=== PATIENT | male | born 1965 | race Caucasian/White ===

== ENCOUNTER 2016-09-28 15:07 | Inpatient (IN) | payer SELFPAY ==
[~2016-09-28] VITALS: Ht 180.3 cm; Wt 67.0 kg
[2016-09-28] VITALS (10 sets, daily range): BP systolic 105–150; BP diastolic 56–81; PULSE 64–235; RESP 15–20; TEMP 98.3–98.6; O2SAT 98–100
[~2016-09-28 15:07] MED LIST: Z.0.NO CURRENT MEDS
[2016-09-28] MEDS ORDERED: ETOMIDATE 20 MG/10 ML VIAL IV PUSH ONE (15:15)
[2016-09-28] MEDS ORDERED: SODIUM CHLORIDE 0.9% FLUSH 10 ML FLUSH IVF PRN (15:30)
[2016-09-28] MEDS ORDERED: METOPROLOL TARTRATE 50 MG TAB PO ONE (15:30)
[2016-09-28 15:43] LABS: AUTOMATED NEUTROPHIL # 11.7 TH/MM3 (1.8-7.7); BASOPHIL # 0.1 TH/MM3 (0-0.2); BASOPHIL % 0.7 % (0.0-2.0); EOSINOPHIL # 0.1 TH/MM3 (0-0.4); EOSINOPHIL % 0.7 % (0.0-4.0); HEMATOCRIT 45.3 % (39.0-51.0); HEMO FLAGS DIFF FINAL; LYMPH % 12.7 % (9.0-44.0); LYMPHOCYTE # 1.9 TH/MM3 (1.0-4.8); MEAN CELL VOLUME 88.9 FL (80.0-100.0); MEAN CORPUSCULAR HEMOGLOBIN 29.4 PG (27.0-34.0); MEAN CORPUSCULAR HGB CONC 33.1 % (32.0-36.0); MONO % 6.2 % (0.0-8.0); NEUT % 79.7 % (16.0-70.0); PLATELET COUNT 236 TH/MM3 (150-450); RED CELL DISTRIBUTION WIDTH 13.1 % (11.6-17.2); WHITE BLOOD COUNT 14.6 TH/MM3 (4.0-11.0)
--- NOTE | 2016-09-28 15:46 | RADRPT ---
EXAM DATE/TIME: 09/28/2016 15:36 [place] COMPARISON: No previous studies available for comparison. INDICATIONS : Chest pain. MEDICAL HISTORY : None. SURGICAL HISTORY : None. ENCOUNTER: Initial ACUITY: 1 day PAIN SCORE: 10/10 LOCATION: Bilateral chest FINDINGS: A single view of the chest demonstrates the lungs to be symmetrically aerated without evidence of mas s, infiltrate or effusion. The cardiomediastinal contours are unremarkable. Osseous structures are intact. CONCLUSION: No evidence of acute cardiopulmonary disease. Moise Barry MD on September 28, 2016 at 15:44 Board Certified Radiologist. This report was verified electronically.
[2016-09-28 15:51] LABS: AMPHETAMINE, URINE NEG (NEG); BARBITURATES, URINE NEG (NEG); COCAINE, URINE NEG (NEG)
[2016-09-28 16:00] LABS: APTT (PATIENT) 27.1 SEC (24.3-30.1); PROTHROMBIN TIME - PATIENT 11.3 SEC (9.8-11.6)
[2016-09-28 16:08] LABS: ANION GAP 11 MEQ/L (5-15); BICARBONATE 20.6 MEQ/L (21.0-32.0); BLOOD UREA NITROGEN 20 MG/DL (7-18); CHLORIDE 111 MEQ/L (98-107); GLOMERULAR FILTRATION RATE 86 ML/MIN (>89); MAGNESIUM 2.2 MG/DL (1.5-2.5); POTASSIUM 3.9 MEQ/L (3.5-5.1); SODIUM (NA) 143 MEQ/L (136-145)
[2016-09-28 16:12] LABS: CREATINE KINASE 265 U/L (39-308)
[2016-09-28 16:24] LABS: CKMB 4.3 NG/ML (0.5-3.6)
[2016-09-28] MEDS ORDERED: SODIUM CHLOR 0.9% 1000 ML INJ 1,000 ML IV ONE (16:30)
--- NOTE | 2016-09-28 16:32 | PD ---
HPI Chief Complaint: Cardiac Complaint Time Seen by Provider: 15:09 Travel History International Travel<30 days: No Contact w/Intl Traveler<30days: No Traveled to known affect area: No History of Present Illness HPI 51-year-old male came to the emergency room brought by EMS for tachycardia. Patient says that he was not feeling well for past 1 hour and was getting palpitations. When EMS arrived he was in SVT. They gave him adenosine 6 mg followed by another 6 mg and then 12 mg and each time he temporally converted for a few seconds and then went back to the SVT. Upon arrival he was at a heart rate of close to 250 bpm. He is awake and answering questions. Denies of any chest pain. He said he has never had this before. No history of cocaine as per the patient. He otherwise claims to be healthy. [facility] Past Medical History Narrative Medical List of his past medical, surgical, social and family history was reviewed from the nursing note. Medical History: Denies Significant Hx Diminished Hearing: No Past Surgical History Surgical History: No Previous Surgery Social History Alcohol Use: Yes (BEER EVERY 2 DAYS) Tobacco Use: No (QUIT) Substance Use: Yes (MARIJUANA) Allergies-Medications (Allergen,Severity, Reaction): Coded Allergies: No Known Allergies (Verified , 09/28/16) Comments No known drug allergies. Reported Meds & Prescriptions Reported Meds & Active Scripts Active No Active Prescriptions or Reported Medications Narrative Medication List of his home medications reviewed from the nursing note. Review of Systems Except as stated in HPI: all other systems reviewed are Neg Physical Exam Narrative GENERAL: Awake, alert, moderate distress SKIN: Focused skin assessment warm/dry. Pale HEAD: Atraumatic. Normocephalic. EYES: Pupils equal and round. No scleral icterus. No injection or drainage. ENT: No nasal bleeding or discharge. Mucous membranes pink and moist. NECK: Trachea midline. No JVD. CARDIOVASCULAR: Regular rate and rhythm. Tachycardia. No murmur appreciated. RESPIRATORY: No accessory muscle use. Clear to auscultation. Breath sounds equal bilaterally. GASTROINTESTINAL: Abdomen soft, non-tender, nondistended. Hepatic and splenic margins not palpable. MUSCULOSKELETAL: No obvious deformities. No clubbing. No cyanosis. No edema. NEUROLOGICAL: Awake and alert. No obvious cranial nerve deficits. Motor grossly within normal limits. Normal speech. PSYCHIATRIC: Appropriate mood and affect; insight and judgment normal. Data Data Last Documented VS Vital Signs Date Time Temp Pulse Resp B/P Pulse Ox O2 Delivery O2 Flow Rate FiO2 09/28/16 16:30 86 19 105/79 100 Nasal Cannula 2 09/28/16 15:15 98.3 Orders Etomidate Inj (Amidate Inj) (09/28/16 15:15) Basic Metabolic Panel (Bmp) (09/28/16 15:19) Ckmb (Isoenzyme) Profile (09/28/16 15:19) Complete Blood Count With Diff (09/28/16 15:19) Magnesium (Mg) (09/28/16 15:19) Prothrombin Time / Inr (Pt) (09/28/16 15:19) Act Partial Throm Time (Ptt) (09/28/16 15:19) Troponin I (09/28/16 15:19) Chest, Single Ap (09/28/16 15:19) Ecg Monitoring (09/28/16 15:19) Bilateral Bp Monitoring (09/28/16 15:19) Iv Access Insert/Monitor (09/28/16 15:19) Oximetry (09/28/16 15:19) Oxygen Administration (09/28/16 15:19) Sodium Chloride 0.9% Flush (Ns Flush) (09/28/16 15:30) Metoprolol Tartrate (Lopressor) (09/28/16 15:30) Drug Screen, Random Urine (09/28/16 15:20) CKMB (09/28/16 15:25) CKMB% (09/28/16 15:25) Sodium Chlor 0.9% 1000 Ml Inj (Ns 1000 M (09/28/16 16:30) Admit Order (Ed Use Only) (09/28/16 16:59) Labs Laboratory Tests Test 09/28/16 15:25 White Blood Count 14.6 TH/MM3 Red Blood Count 5.10 MIL/MM3 Hemoglobin 15.0 GM/DL Hematocrit 45.3 % Mean Corpuscular Volume 88.9 FL Mean Corpuscular Hemoglobin 29.4 PG Mean Corpuscular Hemoglobin 33.1 % Concent Red Cell Distribution Width 13.1 % Platelet Count 236 TH/MM3 Mean Platelet Volume 9.9 FL Neutrophils (%) (Auto) 79.7 % Lymphocytes (%) (Auto) 12.7 % Monocytes (%) (Auto) 6.2 % Eosinophils (%) (Auto) 0.7 % Basophils (%) (Auto) 0.7 % Neutrophils # (Auto) 11.7 TH/MM3 Lymphocytes # (Auto) 1.9 TH/MM3 Monocytes # (Auto) 0.9 TH/MM3 Eosinophils # (Auto) 0.1 TH/MM3 Basophils # (Auto) 0.1 TH/MM3 CBC Comment DIFF FINAL Differential Comment Prothrombin Time 11.3 SEC Prothromb Time International 1.0 RATIO Ratio Activated Partial 27.1 SEC Thromboplast Time Sodium Level 143 MEQ/L Potassium Level 3.9 MEQ/L Chloride Level 111 MEQ/L Carbon Dioxide Level 20.6 MEQ/L Anion Gap 11 MEQ/L Blood Urea Nitrogen 20 MG/DL Creatinine 0.93 MG/DL Estimat Glomerular Filtration 86 ML/MIN Rate Random Glucose 143 MG/DL Calcium Level 8.6 MG/DL Magnesium Level 2.2 MG/DL Total Creatine Kinase 265 U/L Creatine Kinase MB 4.3 NG/ML Troponin I 0.09 NG/ML Urine Opiates Screen NEG Urine Barbiturates Screen NEG Urine Amphetamines Screen NEG Urine Benzodiazepines Screen NEG Urine Cocaine Screen NEG Urine Cannabinoids Screen POS MDM Medical Decision Making Medical Screen Exam Complete: Yes Emergency Medical Condition: Yes Medical Record Reviewed: Yes Interpretation(s) Twelve-lead EKG was reviewed by me. White complex tachycardia. Heart rate of 243 bpm. Differential Diagnosis SVT, WPW Narrative Course 4:28 PM given the fact that he had not converted with the recommended dose of adenosine I decided to cardiovert him. Please refer to my procedure note. Patient was cardioverted by me. Rhythm immediately converted to normal sinus with tachycardia. Heart rate was 102 bpm. Patient tolerated the procedure well. Blood test results came back and his troponin is elevated. I've decided to admit him. Patient is positive for THC. He is getting a liter of IV fluid bolus. I also gave him 50 mg of metoprolol. Critical Care Narrative Aggregate critical care time was 45 minutes. Time to perform other separately billable procedures was not included in the critical care time. My time did not include minutes spent treating any other patients simultaneously or on activities that did not directly contribute to the patient's treatment. The services I provided to this patient were to treat and/or prevent clinically significant deterioration that could result in: SVT, elevated troponin, electrocardioversion I provided critical care services requiring my management, as noted below: Chart data review, documentation time, medication orders and management, vital sign assessments/reviewing monitor data, ordering and reviewing lab tests, ordering and interpreting/reviewing x-rays and diagnostic studies, care of the patient and discussion of the patient with the admitting physicians. Procedures Procedure Narrative After the risks and benefits were discussed the following procedure was performed: MODERATE SEDATION: The patient was placed on a manager monitoring and pulse oximetry. An ambu bag and suction was immediately available at bedside. The patient was monitored by the nurse. Oxygen saturation , heart rate and blood pressure were monitored. Procedural sedation was acheived using IV 10 mg of etomidate. The patient was observed until awake and alert. Procedural Sedation time in attendance was 20 minutes. After the sedation was done patient was already on cardioversion pads was synchronized to 50 J and shock was delivered. Patient immediately cardioverted to normal sinus rhythm. Patient tolerated the procedure well. Patient remained hemodynamically stable. EKG Prior to Arrival: Yes Diagnosis Primary Impression: Sustained SVT Additional Impression: Elevated troponin I level Admitting Information Admitting Physician Requests: Admit Scripts No Active Prescriptions or Reported Meds Tamanna Lacy MD Sep 28, 2016 16:32 Tamanna Lacy MD Sep 28, 2016 16:32
[2016-09-28] MEDS ORDERED: MAGNESIUM HYDROXIDE SUSP 30 ML CUP PO PRN (17:30)
[2016-09-28] MEDS ORDERED: ONDANSETRON HCL 4 MG/2 ML VIAL IVP PRN (17:30)
[2016-09-28] MEDS ORDERED: BISACODYL 10 MG SUPP RECTAL PRN (17:30)
[2016-09-28] MEDS ORDERED: ACETAMINOPHEN 325 MG TAB PO PRN (17:30)
[2016-09-28] MEDS ORDERED: SENNOSIDES 8.6 MG TAB PO PRN (17:30)
[2016-09-28] MEDS ORDERED: SODIUM CHLORIDE 0.9% FLUSH 10 ML FLUSH IV FLUSH PRN (17:30)
[2016-09-28] MEDS ORDERED: LACTULOSE SYRUP 20 GM/30 ML CUP PO PRN (17:30)
--- NOTE | 2016-09-28 18:29 | HHI.HP ---
[facility] No Primary Care Physician Admission Diagnosis SVT, elevated troponin Diagnoses: Chief Complaint: Heart racing Dizziness Sweating Travel History International Travel<30 Days: No Contact w/Intl Traveler <30 Da: No Traveled to Known Affected Are: No History of Present Illness Written by Rafaela Murillo acting as scribe for Dr. Rainey on 09/28/16 at 18 :15. This is a 51-year-old Romanian male with no significant past medical history who was brought into the ED by EMS for tachycardia. History is obtained from the patient himself as well as review of the medical record. Patient states that he had been working on a truck out in the heat earlier today. He had not eaten or drank anything all day. About an hour prior to his arrival into the ED, he developed some dizziness, sweating and palpitations. He felt as if his heart was racing. He denies any associated chest pain. When EMS arrived patient was in SVT. EMS administered several rounds of adenosine and each time patient would temporally convert to NSR for a few seconds before going back in to SVT. Upon arrival to the ED patient heart rate of near 250. Patient was cardioverted in the ED and the rhythm and really returned to normal sinus with tachycardia. He was given IV fluid and started on metoprolol 50 mg. Of note, patient is requesting to be discharged by Friday as he has a flight to [place] to see his son's graduation from high school. Review of Systems Except as stated in HPI: all other systems reviewed are Neg Past Family Social History Past Medical History Patient denies any significant past history Past Surgical History Patient denies any previous surgical procedure Reported Medications No Active Prescriptions or Reported Medications Allergies: Coded Allergies: No Known Allergies (Verified , 09/28/16) Active Ordered Medications Current Medications Medications (Trade) Dose Ordered Sig/Mary Route Start Time Stop Time Status Last Admin (NS Flush) 2 ml UNSCH PRN IVF 09/28/16 15:30 (NS Flush) 2 ml UNSCH PRN IV FLUSH 09/28/16 17:30 (NS Flush) 2 ml BID IV FLUSH 09/28/16 21:00 (Tylenol) 650 mg Q4H PRN PO 09/28/16 17:30 (Zofran Inj) 4 mg Q6H PRN IVP 09/28/16 17:30 (Heparin Inj) 5,000 units Q8H SQ 09/28/16 17:30 (Lauryn-Colace) 1 tab BID PO 09/28/16 21:00 (Milk Of Magnesia Liq) 30 ml Q12H PRN PO 09/28/16 17:30 (Senokot) 17.2 mg Q12H PRN PO 09/28/16 17:30 (Dulcolax Supp) 10 mg DAILY PRN RECTAL 09/28/16 17:30 (Lactulose Liq) 30 ml DAILY PRN PO 09/28/16 17:30 Family History Patient denies any family medical history of heart disease Social History Patient reports a history of tobacco use but quit. He admits to alcohol consumption of 2-3 beers a day every 3-4 days. He reports marijuana use. He denies any cocaine use in the past. Physical Exam Vital Signs Vital Signs Date Time Temp Pulse Resp B/P Pulse Ox O2 Delivery O2 Flow Rate FiO2 09/28/16 18:09 99 4.00 09/28/16 16:30 86 19 105/79 100 Nasal Cannula 2 09/28/16 16:00 94 20 106/56 98 Nasal Cannula 3 09/28/16 15:33 96 19 138/64 100 Nasal Cannula 4 09/28/16 15:30 99 19 100 Nasal Cannula 4 09/28/16 15:30 94 15 138/64 98 Nasal Cannula 3 09/28/16 15:15 98.3 98 20 150/77 100 Nasal Cannula 4 09/28/16 15:12 98 Nasal Cannula 4 09/28/16 15:12 98 Nasal Cannula 4 09/28/16 15:12 235 20 126/81 98 Physical Exam GENERAL: This is a well-nourished, well-developed patient, in no apparent distress. Awake and alert. Pleasant and cooperative. SKIN: No rashes, ecchymoses or lesions. Cool and dry. HEAD: Atraumatic. Normocephalic. No temporal or scalp tenderness. EYES: Pupils equal round and reactive. Extraocular motions intact. No scleral icterus. No injection or drainage. ENT: Nose without bleeding, purulent drainage or septal hematoma. Throat without erythema, tonsillar hypertrophy or exudate. Uvula midline. Airway patent. NECK: Trachea midline. Supple, nontender, no meningeal signs. CARDIOVASCULAR: Regular rate and rhythm without murmurs, gallops, or rubs. RESPIRATORY: Clear to auscultation. Breath sounds equal bilaterally. No wheezes , rales, or rhonchi. GASTROINTESTINAL: Abdomen soft, non-tender, nondistended. No hepato-splenomegaly , or palpable masses. No guarding. MUSCULOSKELETAL: Extremities without clubbing, cyanosis, or edema. No joint tenderness, effusion, or edema noted. No calf tenderness. NEUROLOGICAL: Awake and alert. Able to move all extremities. No focal neurologic findings appreciated. Normal speech. Laboratory Laboratory Tests Test 09/28/16 15:25 White Blood Count 14.6 Red Blood Count 5.10 Hemoglobin 15.0 Hematocrit 45.3 Mean Corpuscular Volume 88.9 Mean Corpuscular Hemoglobin 29.4 Mean Corpuscular Hemoglobin 33.1 Concent Red Cell Distribution Width 13.1 Platelet Count 236 Mean Platelet Volume 9.9 Neutrophils (%) (Auto) 79.7 Lymphocytes (%) (Auto) 12.7 Monocytes (%) (Auto) 6.2 Eosinophils (%) (Auto) 0.7 Basophils (%) (Auto) 0.7 Neutrophils # (Auto) 11.7 Lymphocytes # (Auto) 1.9 Monocytes # (Auto) 0.9 Eosinophils # (Auto) 0.1 Basophils # (Auto) 0.1 CBC Comment DIFF FINAL Differential Comment Prothrombin Time 11.3 Prothromb Time International 1.0 Ratio Activated Partial 27.1 Thromboplast Time Sodium Level 143 Potassium Level 3.9 Chloride Level 111 Carbon Dioxide Level 20.6 Anion Gap 11 Blood Urea Nitrogen 20 Creatinine 0.93 Estimat Glomerular Filtration 86 Rate Random Glucose 143 Calcium Level 8.6 Magnesium Level 2.2 Total Creatine Kinase 265 Creatine Kinase MB 4.3 Troponin I 0.09 Urine Opiates Screen NEG Urine Barbiturates Screen NEG Urine Amphetamines Screen NEG Urine Benzodiazepines Screen NEG Urine Cocaine Screen NEG Urine Cannabinoids Screen POS Result Diagram: 09/28/16 1525 09/28/16 1525 Imaging Last Impressions Chest X-Ray 09/28/16 1519 Signed Impressions: Service Date/Time: Wednesday, September 28, 2016 15:36 - CONCLUSION: No evidence of acute cardiopulmonary disease. Moise Barry MD Assessment and Plan Assessment and Plan 51-year-old Romanian male with no significant past medical history who was brought into the ED by EMS in SVT with a heart rate of 250. Despite being given the appropriate amount of adenosine, patient failed to stay in normal sinus rhythm. ED physician made the decision to cardiovert the patient and he was successful cardioverted to normal sinus rhythm with tachycardia. SVT Elevated troponin Patient currently in normal sinus rhythm with a heart rate of 90 Elevated troponin likely due to SVT Urine drug screen positive for marijuana but no evidence of cocaine use Consult cardiology Cardiac telemetry Cycle cardiac enzymes and EKGs Obtain echocardiogram Laboratory states to include thyroid studies, lipid profile and hemoglobin A1c NPO after midnight Leukocytosis Suspect reactive Patient is afebrile and normotensive. No suspicion of infection at this time. A.m. labs to monitor trend DVT prophylaxis Heparin subcutaneous This note was transcribed by chyna Murillo. I, Dr. Roberto Jones personally performed the history, physical exam, and medical decision making; and confirmed the accuracy of the information in the transcribed note. Authenticated by Dr. Roberto Jones on 09/28/16 at 18:33 Physician Certification 2 Midnight Certification Type: Admission for Inpatient Services Order for Inpatient Services The services are ordered in accordance with Medicare regulations or non- Medicare payer requirements, as applicable. In the case of services not specified as inpatient-only, they are appropriately provided as inpatient services in accordance with the 2-midnight benchmark. Estimated LOS (days): 2 days is the estimated time the patient will need to remain in the hospital, assuming treatment plan goals are met and no additional complications. Post-Hospital Plan: Not yet determined Rafaela Murillo Sep 28, 2016 18:29 Roberto Becerra MD Sep 28, 2016 18:34
[2016-09-28] MEDS: HEPARIN SODIUM - SQ 10,000 UNITS/ML VIAL SQ SCH (18:56)
[2016-09-28] MEDS: SODIUM CHLORIDE 0.9% FLUSH 10 ML FLUSH IV FLUSH SCH (19:46)
[2016-09-28] MEDS: DOCUSATE SODIUM 50 MG/SENNA 8.6 MG TAB PO SCH (19:46)
[2016-09-29] VITALS (7 sets, daily range): BP systolic 114–142; BP diastolic 62–73; PULSE 60–68; RESP 16–19; TEMP 97.9–98.6; O2SAT 96–100
[2016-09-29] MEDS: HEPARIN SODIUM - SQ 10,000 UNITS/ML VIAL SQ SCH ×3 (02:59→17:30)
[2016-09-29 03:24] LABS: AUTOMATED NEUTROPHIL # 6.5 TH/MM3 (1.8-7.7); BASOPHIL # 0.1 TH/MM3 (0-0.2); BASOPHIL % 1.1 % (0.0-2.0); EOSINOPHIL # 0.3 TH/MM3 (0-0.4); EOSINOPHIL % 2.8 % (0.0-4.0); HEMATOCRIT 40.5 % (39.0-51.0); HEMO FLAGS DIFF FINAL; LYMPH % 34.2 % (9.0-44.0); MEAN CELL VOLUME 87.3 FL (80.0-100.0); MEAN CORPUSCULAR HGB CONC 34.4 % (32.0-36.0); NEUT % 54.9 % (16.0-70.0); PLATELET COUNT 218 TH/MM3 (150-450); RED BLOOD COUNT 4.64 MIL/MM3 (4.50-5.90); RED CELL DISTRIBUTION WIDTH 12.9 % (11.6-17.2); WHITE BLOOD COUNT 11.7 TH/MM3 (4.0-11.0)
[2016-09-29 07:44] LABS: ANION GAP 11 MEQ/L (5-15); AST (GOT) 20 U/L (15-37); BLOOD UREA NITROGEN 15 MG/DL (7-18); CHLORIDE 109 MEQ/L (98-107); GLOMERULAR FILTRATION RATE 119 ML/MIN (>89); POTASSIUM 3.8 MEQ/L (3.5-5.1); SODIUM (NA) 141 MEQ/L (136-145)
[2016-09-29 07:53] LABS: ALKALINE PHOSPHATASE 60 U/L (45-117); ALT (GPT) 25 U/L (12-78); CREATINE KINASE 237 U/L (39-308); FREE T3 3.86 PG/ML (2.18-3.98); FREE T4 1.01 NG/DL (0.76-1.46); LDL CHOLESTEROL 75 MG/DL (0-99); TOTAL BILIRUBIN ADULT 0.9 MG/DL (0.2-1.0)
--- NOTE | 2016-09-29 08:55 | HHI.HP ---
HPI Primary Care Physician No Primary Care Physician Chief Complaint Arrhythmia History of Present Illness The patient has no cardiac history. He is extremely active. 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 He developed a rapid heart rate with fatigue and lightheadedness. This was persistent. He had no chest discomfort or other cardiopulmonary symptoms. He eventually sought attention in the emergency room where he was diagnosed with SVT which apparently converted with intravenous adenosine. Total duration of the episode was one and one half hours. EKG subsequent conversion showed sinus rhythm and was normal. On review of the emergency room strips it is clear that this is not a typical SVT but rather atrial flutter with one-to-one AV conduction at a rate of approximate 250 bpm. Review of Systems HEENT: COMPLAINS OF: Lightheadedness Cardiovascular: COMPLAINS OF: Tachycardia Musculoskeletal: COMPLAINS OF: Joint pain Past Family Social History Allergies: Coded Allergies: No Known Allergies (Verified , 09/28/16) Past Medical History Denies all except for knee pain. No history of hypertension, hyperlipidemia, thyroid disease or diabetes. Past Surgical History None Reported Medications Takes tramadol as needed for knee pain Reported Meds & Active Scripts Active No Active Prescriptions or Reported Medications Active Ordered Medications Current Medications Medications (Trade) Dose Ordered Sig/Mary Route Start Time Stop Time Status Last Admin (NS Flush) 2 ml UNSCH PRN IVF 09/28/16 15:30 (NS Flush) 2 ml UNSCH PRN IV FLUSH 09/28/16 17:30 (NS Flush) 2 ml BID IV FLUSH 09/28/16 21:00 09/28/16 19:46 (Tylenol) 650 mg Q4H PRN PO 09/28/16 17:30 (Zofran Inj) 4 mg Q6H PRN IVP 09/28/16 17:30 (Heparin Inj) 5,000 units Q8H SQ 09/28/16 17:30 09/29/16 02:59 (Lauryn-Colace) 1 tab BID PO 09/28/16 21:00 (Milk Of Magnesia Liq) 30 ml Q12H PRN PO 09/28/16 17:30 (Senokot) 17.2 mg Q12H PRN PO 09/28/16 17:30 (Dulcolax Supp) 10 mg DAILY PRN RECTAL 09/28/16 17:30 (Lactulose Liq) 30 ml DAILY PRN PO 09/28/16 17:30 Family History Unremarkable for premature coronary disease Social History The patient is single. He does not smoke cigarettes but does use marijuana. He does not use any other drugs. He drinks a few beers per day. Physical Exam Vital Signs Vital Signs Date Time Temp Pulse Resp B/P Pulse Ox O2 Delivery O2 Flow Rate FiO2 09/29/16 08:00 66 09/29/16 08:00 98.6 60 18 131/73 100 09/29/16 08:00 Room Air 09/29/16 04:00 98.4 68 18 121/73 98 09/29/16 00:00 98.4 66 16 114/65 99 09/28/16 20:00 Room Air 09/28/16 20:00 98.6 71 18 126/78 98 09/28/16 20:00 73 09/28/16 18:30 64 18 110/62 99 Nasal Cannula 3 09/28/16 18:09 99 4.00 09/28/16 17:30 64 19 119/75 100 Nasal Cannula 3 09/28/16 16:30 86 19 105/79 100 Nasal Cannula 2 09/28/16 16:00 94 20 106/56 98 Nasal Cannula 3 09/28/16 15:33 96 19 138/64 100 Nasal Cannula 4 09/28/16 15:30 99 19 100 Nasal Cannula 4 09/28/16 15:30 94 15 138/64 98 Nasal Cannula 3 09/28/16 15:15 98.3 98 20 150/77 100 Nasal Cannula 4 09/28/16 15:12 98 Nasal Cannula 4 09/28/16 15:12 98 Nasal Cannula 4 09/28/16 15:12 235 20 126/81 98 Physical Exam CONSTITUTIONAL: A well-developed, well-nourished patient in no apparent distress. EYES: Conjunctiva normal. Sclera nonicteric. Eyelids normal. No xanthelasma. HEENT: Oral mucosa normal without pallor or cyanosis. NECK: JVD less than or equal to 5 cm of water. RESPIRATORY: Breathing is unlabored without accessory muscle use. Normal breath sounds. No wheezes, rales or rubs present. CARDIOVASCULAR: Normal point of maximal impulse. No cardiac thrill present. Regular rate and rhythm. No murmurs, gallops, rubs or clicks present. PULSES: Carotid arteries: Normal pulses bilaterally without bruits. Palmar arteries: Radial pulses 2+ bilaterally Abdominal aorta: Aortic pulses normal without bruits or enlargement. Femoral arteries: 2+ bilaterally. No bruits present. Pedal pulses: 2+ bilaterally PERIPHERAL CIRCULATION: No cyanosis, clubbing, edema or varicosities present. GASTROINTESTINAL: Normal bowel sounds. Nontender without rigidity or guarding. No masses present. No hepatomegaly. Liver is nontender to palpation and spleen is nonpalpable. Digital rectal exam-not indicated for cardiovascular exam. MUSCULOSKELETAL: No kyphosis or scoliosis present. The patient is not ambulated. Able to undergo rehabilitation. SKIN: Skin turgor is normal. No rashes. NEUROLOGIC: Grossly oriented to person, place and time. Normal mood and appropriate affect. Laboratory Laboratory Tests Test 09/28/16 09/28/16 09/29/16 15:25 22:05 03:01 White Blood Count 14.6 11.7 Red Blood Count 5.10 4.64 Hemoglobin 15.0 13.9 Hematocrit 45.3 40.5 Mean Corpuscular Volume 88.9 87.3 Mean Corpuscular Hemoglobin 29.4 30.0 Mean Corpuscular Hemoglobin 33.1 34.4 Concent Red Cell Distribution Width 13.1 12.9 Platelet Count 236 218 Mean Platelet Volume 9.9 9.4 Neutrophils (%) (Auto) 79.7 54.9 Lymphocytes (%) (Auto) 12.7 34.2 Monocytes (%) (Auto) 6.2 7.0 Eosinophils (%) (Auto) 0.7 2.8 Basophils (%) (Auto) 0.7 1.1 Neutrophils # (Auto) 11.7 6.5 Lymphocytes # (Auto) 1.9 4.0 Monocytes # (Auto) 0.9 0.8 Eosinophils # (Auto) 0.1 0.3 Basophils # (Auto) 0.1 0.1 CBC Comment DIFF FINAL DIFF FINAL Differential Comment Prothrombin Time 11.3 Prothromb Time International 1.0 Ratio Activated Partial 27.1 Thromboplast Time Sodium Level 143 141 Potassium Level 3.9 3.8 Chloride Level 111 109 Carbon Dioxide Level 20.6 21.0 Anion Gap 11 11 Blood Urea Nitrogen 20 15 Creatinine 0.93 0.70 Estimat Glomerular Filtration 86 119 Rate Random Glucose 143 91 Calcium Level 8.6 7.8 Magnesium Level 2.2 Total Creatine Kinase 265 245 237 Creatine Kinase MB 4.3 Troponin I 0.09 0.70 0.46 Urine Opiates Screen NEG Urine Barbiturates Screen NEG Urine Amphetamines Screen NEG Urine Benzodiazepines Screen NEG Urine Cocaine Screen NEG Urine Cannabinoids Screen POS Total Bilirubin 0.9 Aspartate Amino Transf 20 (AST/SGOT) Alanine Aminotransferase 25 (ALT/SGPT) Alkaline Phosphatase 60 Total Protein 6.5 Albumin 3.4 Triglycerides Level 57 Cholesterol Level 133 LDL Cholesterol 75 HDL Cholesterol 47.0 Cholesterol/HDL Ratio 2.82 Free Thyroxine 1.01 Free Triiodothyronine (T3) 3.86 pg/dL Thyroid Stimulating Hormone 2.410 3rd Gen Result Diagram: 09/29/16 03009/29/16 030 Imaging Last 48 hours Impressions Chest X-Ray 09/28/16 1519 Signed Impressions: Service Date/Time: Wednesday, September 28, 2016 15:36 - CONCLUSION: No evidence of acute cardiopulmonary disease. Moise Barry MD Assessment and Plan Assessment and Plan Problems: Palpitations with atrial flutter with one-to-one conduction Elevated troponinnonspecific as this could be significant for coronary artery disease or a type II VT due to sustained rapid tachycardia. Recommendations: Baby aspirin and low-dose beta blockers Echocardiogram pending We'll consult for consult in the morning. This is potentially life- threatening situation which I have discussed with the patient because of its extreme tachycardia. He will need some coronary workup and will likely need electrophysiology study. I have told him that it is extremely dangerous for him to leave the hospital given the life-threatening nature of this. He will likely stay despite having his son's graduation tomorrow. If he leaves the hospital prematurely it should be AGAINST MEDICAL ADVICE and he absolutely cannot drive or operate heavy machinery because of danger to himself and others. Paresh Hernandez MD Sep 29, 2016 08:55
[2016-09-29] MEDS: DOCUSATE SODIUM 50 MG/SENNA 8.6 MG TAB PO SCH ×2 (09:00→20:08)
--- NOTE | 2016-09-29 09:29 | EKG ---
Date Performed: 09/29/2016 Time Performed: 06:15:18 PTAGE: 51 years EKG: Sinus bradycardia. Normal ECG except for rate NO PREVIOUS TRACING DOCTOR: Raj Hayes Interpretating Date/Time 09/29/2016 09:27:32
--- NOTE | 2016-09-29 09:35 | EKG ---
Date Performed: 09/28/2016 Time Performed: 22:39:15 PTAGE: 51 years EKG: Sinus rhythm NORMAL ECG PREVIOUS TRACING : 09/28/2016 17.20 DOCTOR: Raj Hayes Interpretating Date/Time 09/29/2016 09:31:06
--- NOTE | 2016-09-29 09:40 | EKG ---
Date Performed: 09/28/2016 Time Performed: 17:20:49 PTAGE: 51 years EKG: Sinus rhythm NORMAL ECG NO PREVIOUS TRACING DOCTOR: Raj Hayes Interpretating Date/Time 09/29/2016 09:34:02
[2016-09-29] MEDS: METOPROLOL TARTRATE 25 MG TAB PO SCH ×2 (09:50→21:10)
[2016-09-29] MEDS: SODIUM CHLORIDE 0.9% FLUSH 10 ML FLUSH IV FLUSH SCH ×2 (09:51→21:00)
--- NOTE | 2016-09-29 09:56 | ECHRPT ---
Indication: Dysrrythmia CONCLUSIONS Wall thickness is normal. The left ventricular systolic function is normal with an estimated ejection fraction in the range of 55-60%. No regional wall motion abnormalities are present. Cannot rule out a bicuspid aortic valve or trileaflet valve with partially fused commissure. . No tricuspid valve stenosis. There is trace tricuspid valve regurgitation. The estimated pulmonary arterial pressure is 23 mmHg. BP: / HR: Rhythm: Sinus MEASUREMENTS (Male / Female) Normal Values Technical Quality:Good 2D ECHO LV Diastolic Diameter PLAX 5.5 cm 4.2 - 5.9 / 3.9 - 5.3 cm LV Systolic Diameter PLAX 4.1 cm IVS Diastolic Thickness 1.0 cm 0.6 - 1.0 / 0.6 - 0.9 cm LVPW Diastolic Thickness 0.8 cm 0.6 - 1.0 / 0.6 - 0.9 cm LV Relative Wall Thickness 0.3 RV Internal Dim ED PLAX 2.1 cm LA Systolic Diameter LX 3.6 cm 3.0 - 4.0 / 2.7 - 3.8 cm M-MODE Aortic Root Diameter MM 3.0 cm AV Cusp Separation MM 2.1 cm DOPPLER AV Peak Velocity 151.0 cm/s AV Peak Gradient 9.1 mmHg LVOT Peak Velocity 115.0 cm/s LVOT Peak Gradient 5.3 mmHg Mitral E Point Velocity 68.0 cm/s Mitral A Point Velocity 65.3 cm/s Mitral E to A Ratio 1.0 TR Peak Velocity 240.0 cm/s TR Peak Gradient 23.0 mmHg FINDINGS LEFT VENTRICLE Wall thickness is normal. The left ventricular systolic function is normal with an estimated ejection fraction in the range of 55-60%. No regional wall motion abnormalities are present. RIGHT VENTRICLE Normal right ventricular size and systolic function. LEFT ATRIUM The left atrial size is normal. RIGHT ATRIUM The right atrial size is normal. ATRIAL SEPTUM Normal atrial septal thickness without atrial level shunting by limited color doppler interrogation. AORTA The aortic root and proximal ascending aorta are normal in size on limited imaging. MITRAL VALVE Structurally normal mitral valve. No mitral valve stenosis or regurgitation. AORTIC VALVE Cannot rule out a bicuspid aortic valve or trileaflet valve with partially fused commissure. . TRICUSPID VALVE Structurally normal tricuspid valve. No tricuspid valve stenosis. There is trace tricuspid valve reg urgitation. The estimated pulmonary arterial pressure is 23 mmHg. PULMONARY VALVE No pulmonary valve regurgitation or stenosis. VESSELS The inferior vena cava is normal in size. Paresh Hernandez MD (Electronically Signed) Final Date:29 September 2016 09:55
--- NOTE | 2016-09-29 19:03 | HHI.PR ---
Subjective Remarks no further events on telemetry denies cp/sob stable vital signs patient wants to know if he will discharged tomorrow. Objective Vitals Vital Signs Date Time Temp Pulse Resp B/P Pulse Ox O2 Delivery O2 Flow Rate FiO2 09/29/16 16:00 98.3 61 18 121/72 98 09/29/16 12:00 98.4 65 18 130/67 96 09/29/16 08:00 66 09/29/16 08:00 98.6 60 18 131/73 100 09/29/16 08:00 Room Air 09/29/16 04:00 98.4 68 18 121/73 98 09/29/16 00:00 98.4 66 16 114/65 99 09/28/16 20:00 Room Air 09/28/16 20:00 98.6 71 18 126/78 98 09/28/16 20:00 73 I/O 09/28/16 09/28/16 09/28/16 09/29/16 09/29/16 09/29/16 07:00 15:00 23:00 07:00 15:00 23:00 Intake Total 100 ml 960 ml Balance 100 ml 960 ml Intake Oral 100 ml 960 ml # Voids 0 4 # Bowel Movements 0 1 Result Diagram: 09/29/16 0301 09/29/16 0301 Imaging Last Impressions Chest X-Ray 09/28/16 1519 Signed Impressions: Service Date/Time: Wednesday, September 28, 2016 15:36 - CONCLUSION: No evidence of acute cardiopulmonary disease. Moise Barry MD Objective Remarks GENERAL: This is a well-nourished, well-developed patient, in no apparent distress. Awake and alert. Pleasant and cooperative. SKIN: No rashes, ecchymoses or lesions. Cool and dry. HEAD: Atraumatic. Normocephalic. No temporal or scalp tenderness. EYES: Pupils equal round and reactive. Extraocular motions intact. No scleral icterus. No injection or drainage. ENT: Nose without bleeding, purulent drainage or septal hematoma. Throat without erythema, tonsillar hypertrophy or exudate. Uvula midline. Airway patent. NECK: Trachea midline. Supple, nontender, no meningeal signs. CARDIOVASCULAR: Regular rate and rhythm without murmurs, gallops, or rubs. RESPIRATORY: Clear to auscultation. Breath sounds equal bilaterally. No wheezes , rales, or rhonchi. GASTROINTESTINAL: Abdomen soft, non-tender, nondistended. No hepato-splenomegaly , or palpable masses. No guarding. MUSCULOSKELETAL: Extremities without clubbing, cyanosis, or edema. No joint tenderness, effusion, or edema noted. No calf tenderness. NEUROLOGICAL: Awake and alert. Able to move all extremities. No focal neurologic findings appreciated. Normal speech. A/P Assessment and Plan 51-year-old Kitt[place] male with no significant past medical history who was brought into the ED by EMS in SVT with a heart rate of 250. Despite being given the appropriate amount of adenosine, patient failed to stay in normal sinus rhythm. ED physician made the decision to cardiovert the patient and he was successful cardioverted to normal sinus rhythm with tachycardia. SVT Elevated troponin/SVT Patient currently in normal sinus rhythm Elevated troponin likely due to SVT Urine drug screen positive for marijuana but no evidence of cocaine use Consult cardiology Cardiac telemetry Cycle cardiac enzymes and EKGs Obtain echocardiogram Laboratory states to include thyroid studies, lipid profile and hemoglobin A1c Patient will have EPS consult and will need some type of study to r/o ischemic disease. Leukocytosis Suspect reactive Patient is afebrile and normotensive. No suspicion of infection at this time. A.m. labs to monitor trend wbc trending up DVT prophylaxis Heparin subcutaneous Roberto Becerra MD Sep 29, 2016 19:03
[2016-09-30] VITALS (9 sets, daily range): BP systolic 114–138; BP diastolic 63–77; PULSE 56–80; RESP 16–20; TEMP 98.2–99.1; O2SAT 97–99
[2016-09-30] MEDS: HEPARIN SODIUM - SQ 10,000 UNITS/ML VIAL SQ SCH ×2 (01:30→09:30)
--- NOTE | 2016-09-30 08:50 | MB ---
cc: FUNMILAYO LOPEZ MD, HANSCY M.D. DATE OF CONSULTATION: 09/30/2016 REASON FOR CONSULTATION Supraventricular tachyarrhythmia. HISTORY OF PRESENT ILLNESS Mr. Knight is a 51-year-old gentleman with no history of systemic illness and very active. The gentleman was at work days ago and began with sweating and dizziness. He went to see EVAC that was staged in the front of the conversation center. He was found to have a heart rate of around 250 beats per minute. He was brought to the emergency room. Adenosine was given. Apparently there is clear sign of atrial flutter. Subsequently metoprolol was given an IV fluid. The patient converted into sinus rhythm. Troponin increased. No chest pain since. I was consulted for further evaluation and management. The chart was reviewed. The patient was evaluated. ALLERGIES None. SOCIAL HISTORY The patient has a couple of beers a day, smokes marijuana. FAMILY HISTORY Noncontributory to his current medical management. MEDICATIONS Currently he is on metoprolol 25 mg twice a day. REVIEW OF SYSTEMS Currently the patient refers no chest pain, no chest discomfort, no shortness of breath, no fever. PHYSICAL EXAMINATION GENERAL: Alert, fully oriented. VITAL SIGNS: Blood pressure 115/63, pulse 66, respiratory rate 18. LUNGS: Ventilated. CARDIOVASCULAR: S1, S2. No gallop and no murmur. ABDOMEN: Soft. No mass. No bruit. EXTREMITIES: No edema. ELECTROCARDIOGRAM Electrocardiogram on hospitalization showed supraventricular tachyarrhythmia, right bundle branch and right axis. Subsequent electrocardiogram shows sinus rhythm, no acute ST and T-wave changes. LABORATORY Hemoglobin 13.9, white blood cell count 11.7. Potassium is 3.8. Troponin coming down, 0.46. HDL 47, total cholesterol 133. TSH 2.41. INR 1.0. Toxicology only positive for cannabis. ASSESSMENT AND RECOMMENDATION Mr. Knight is currently stable. He is a very active gentleman and works as a youth associate. No chest pain or chest discomfort. He had this tachyarrhythmia with apparent aberrancy, possible atrial flutter versus atrial fibrillation. Electrophysiology study and ablation was discussed with him. The risks, the nature and the benefit of the procedure were clearly stated to him. The risks include pneumothorax, cardiac perforation, stroke and even . He understood and agreed to proceed. The procedure will be performed this morning. MD SVETA Joshua/DALIA /8:25 AM /8:45 AM
[2016-09-30] MEDS: DOCUSATE SODIUM 50 MG/SENNA 8.6 MG TAB PO SCH ×2 (09:00→21:00)
[2016-09-30] MEDS: METOPROLOL TARTRATE 25 MG TAB PO SCH ×2 (09:00→21:32)
[2016-09-30] MEDS: SODIUM CHLORIDE 0.9% FLUSH 10 ML FLUSH IV FLUSH SCH ×2 (10:00→21:00)
--- NOTE | 2016-09-30 11:44 | EKG ---
Date Performed: 09/29/2016 Time Performed: 10:37:30 PTAGE: 51 years EKG: Sinus rhythm WITH SHORT NM INTERVAL Since previous tracing, no significant change noted BORDERLINE ECG PREVIOUS TRACING : 09/29/2016 06.15 DOCTOR: Corey Mott Interpretating Date/Time 09/30/2016 11:42:58
--- NOTE | 2016-09-30 11:44 | EKG ---
Date Performed: 09/29/2016 Time Performed: 17:44:01 PTAGE: 51 years EKG: Sinus rhythm Since previous tracing, no significant change noted NORMAL ECG PREVIOUS TRACING : 09/29/2016 10.37 DOCTOR: Corey Mott Interpretating Date/Time 09/30/2016 11:43:15
--- NOTE | 2016-09-30 11:45 | EKG ---
Date Performed: 09/29/2016 Time Performed: 22:16:11 PTAGE: 51 years EKG: Sinus rhythm Since previous tracing, no significant change noted NORMAL ECG PREVIOUS TRACING : 09/29/2016 17.44 DOCTOR: Corey Mott Interpretating Date/Time 09/30/2016 11:43:29
[2016-09-30 16:20] LABS: HEMOGLOBIN A1b 0.8 %; HEMOGLOBIN Ao 85.8 %; HEMOGLOBIN F 0.8 %; HEMOGLOBIN LA1C 1.8 %; HEMOGLOBIN P3 3.7 %
[2016-09-30] MEDS ORDERED: PROPOFOL 200 MG/20 ML AMP IV ONE (17:23)
[2016-09-30] MEDS ORDERED: ISOPROTERENOL HCL 1 MG/5 ML AMP ONE (17:23)
[2016-09-30] MEDS ORDERED: MIDAZOLAM HCL 2 MG/2 ML VIAL ONE ×2 (17:24→18:46)
--- NOTE | 2016-09-30 17:50 | HHI.PR ---
Subjective Remarks Patient seen earlier at 1:30 pm denies cp/sob/palpitations no further events on tele stable vital signs Objective Vitals Vital Signs Date Time Temp Pulse Resp B/P Pulse Ox O2 Delivery O2 Flow Rate FiO2 09/30/16 12:00 98.4 61 18 114/68 98 09/30/16 08:00 Room Air 09/30/16 08:00 98.2 72 20 138/65 97 09/30/16 04:00 Room Air 09/30/16 00:00 Room Air 09/30/16 00:00 98.4 56 18 115/63 98 09/29/16 20:00 98.4 67 19 142/62 98 09/29/16 20:00 67 09/29/16 20:00 Room Air I/O 09/29/16 09/29/16 09/29/16 09/30/16 09/30/16 09/30/16 07:00 15:00 23:00 07:00 15:00 23:00 Intake Total 100 ml 960 ml 0 ml Balance 100 ml 960 ml 0 ml Intake Oral 100 ml 960 ml 0 ml # Voids 0 4 2 # Bowel Movements 0 1 0 Result Diagram: 09/29/16 0301 09/29/16 0301 Imaging Last Impressions Chest X-Ray 09/28/16 1519 Signed Impressions: Service Date/Time: Wednesday, September 28, 2016 15:36 - CONCLUSION: No evidence of acute cardiopulmonary disease. Moise Barry MD Objective Remarks GENERAL: This is a well-nourished, well-developed patient, in no apparent distress. Awake and alert. Pleasant and cooperative. SKIN: No rashes, ecchymoses or lesions. Cool and dry. HEAD: Atraumatic. Normocephalic. No temporal or scalp tenderness. EYES: Pupils equal round and reactive. Extraocular motions intact. No scleral icterus. No injection or drainage. ENT: Nose without bleeding, purulent drainage or septal hematoma. Throat without erythema, tonsillar hypertrophy or exudate. Uvula midline. Airway patent. NECK: Trachea midline. Supple, nontender, no meningeal signs. CARDIOVASCULAR: Regular rate and rhythm without murmurs, gallops, or rubs. RESPIRATORY: Clear to auscultation. Breath sounds equal bilaterally. No wheezes , rales, or rhonchi. GASTROINTESTINAL: Abdomen soft, non-tender, nondistended. No hepato-splenomegaly , or palpable masses. No guarding. MUSCULOSKELETAL: Extremities without clubbing, cyanosis, or edema. No joint tenderness, effusion, or edema noted. No calf tenderness. NEUROLOGICAL: Awake and alert. Able to move all extremities. No focal neurologic findings appreciated. Normal speech. Medications and IVs Current Medications Medications (Trade) Dose Ordered Sig/Mary Route Start Time Stop Time Status Last Admin (NS Flush) 2 ml UNSCH PRN IVF 09/28/16 15:30 (NS Flush) 2 ml UNSCH PRN IV FLUSH 09/28/16 17:30 (NS Flush) 2 ml BID IV FLUSH 09/28/16 21:00 09/30/16 10:00 (Tylenol) 650 mg Q4H PRN PO 09/28/16 17:30 (Zofran Inj) 4 mg Q6H PRN IVP 09/28/16 17:30 (Heparin Inj) 5,000 units Q8H SQ 09/28/16 17:30 09/29/16 02:59 (Lauryn-Colace) 1 tab BID PO 09/28/16 21:00 (Milk Of Magnesia Liq) 30 ml Q12H PRN PO 09/28/16 17:30 (Senokot) 17.2 mg Q12H PRN PO 09/28/16 17:30 (Dulcolax Supp) 10 mg DAILY PRN RECTAL 09/28/16 17:30 (Lactulose Liq) 30 ml DAILY PRN PO 09/28/16 17:30 (Lopressor) 25 mg Q12HR PO 09/29/16 09:00 09/29/16 21:10 Urinary Catheter: No Vascular Central Line Catheter: No A/P Assessment and Plan 51-year-old [place] male with no significant past medical history who was brought into the ED by EMS in SVT with a heart rate of 250. Despite being given the appropriate amount of adenosine, patient failed to stay in normal sinus rhythm. ED physician made the decision to cardiovert the patient and he was successful cardioverted to normal sinus rhythm with tachycardia. SVT Elevated troponin/SVT Patient currently in normal sinus rhythm Elevated troponin likely due to SVT Urine drug screen positive for marijuana but no evidence of cocaine use Consult cardiology Cardiac telemetry Cycle cardiac enzymes and EKGs Obtain echocardiogram Laboratory states to include thyroid studies, lipid profile and hemoglobin A1c 09/30 For EPS study today. Leukocytosis Suspect reactive Patient is afebrile and normotensive. No suspicion of infection at this time. A.m. labs to monitor trend wbc trending up DVT prophylaxis Heparin subcutaneous Discharge Planning for EPS study and possible ablation. Roberto Becerra MD Sep 30, 2016 17:50
--- NOTE | 2016-09-30 18:33 | CATHPROC ---
[facility] HIS Report Study Information Study Number Admission Scheduled Start Study Start [id number] Sep 28 2016 5:01PM 09/30/2016 Sep 30 2016 8:53AM [facility] Electrophysiology Study Admit Source Facility Department Emergency department [facility] - [facility] R[facility] Physician and Clinical Staff Initial Tanna Castillo Cloth Examiner Hand Gisela Wallis,CUSHION WORKER TECH2 Cloth Examiner Hand Pete Hartley,RT(R) Other Anesthesia, JAWBONE PULLER Recorder Aleja Ash,MEENU Scrub Janine Veronica RCIS Equipment Time Firer Portable Boiler Description Size Mfg Part Number Used/Scraped [id number] 08:55 [employer] PACK, CCL CUSTOM * Used *[id number] 08:55 [employer] PACER FLYNN, LIMB * 2530 *[id number] Used [id number] 17:28 [employer] BLANKET,WARM AIR CCL * Used *[id number] 17:28 [employer] CATHETER, JSN, QUAD FR 5 Used *[id number] 17:28 [employer] CATHETER, JSN, QUAD FR 5 Used *[id number] 17:28 [employer] CATHETER, JSN, QUAD FR 5 Used *[id number] 17:28 [employer] CATHETER, JSN, QUAD FR 5 Used *[id number] 17:28 [employer] ELECTRODE KIT, KATELYN X SURFACE * [id number] Used [id number] 17:28 [employer] SHEATH, EPS, FR5 FAST CATH FR 5 Used *[id number] 17:28 [employer] SHEATH, EPS, FR5 FAST CATH FR 5 Used *[id number] 17:28 [employer] SHEATH, EPS, FR5 FAST CATH FR 5 Used *[id number] 17:28 [employer] SHEATH, EPS, FR6 FAST CATH FR [id number] Used 17:28 [employer] SHEATH, EPS, FR8 FAST CATH FR 8 [id number] Used [facility] PAD, ELECTROSURGICAL 17:28 * [id number] *[id number] Used SURGICAL GROUNDING (BLUE) History: Allergies Allergy Reaction No Known Allergies Labs Hgb (g/dl) Hct (%) RBC (MIL/MM3) WBC (l/cumm) Platelets (thousands) 12.00-18.00 37.00-55.00 4.80-6.20 4.80-10.80 140.00-450.00 13.0 40 4.6 11.7 218 Glucose (mg/dl) BUN (mg/dl) Creatinine (mg/dl) BUN:Creatinine (1:x) 60.00-110.00 8.00-20.00 0.10-9.00 10.00-20.00 91 15 0.7 21.4 Na (meq/l) K (meq/l) 138.00-146.00 3.80-5.10 141 3.8 INR (PTT:PT) 0.50-2.00 1 Medication Medication Total Dose (Bolus/Oral) Medication Total Dosage/Unit 1% XYLOCAINE 40 mL Medications (Bolus/Oral) Medication Time Given Dosage/Unit Administered By Reason 1% XYLOCAINE 09/30/2016 5:57:59 PM 20 mL Tanna Piedra 20 mL 1% XYLOCAINE given in lab by Tanna Piedra in Left Groin via Subcutaneous. Ordered by Ramos Piedra. 1% XYLOCAINE 09/30/2016 6:00:51 PM 20 mL Tanna Piedra 20 mL 1% XYLOCAINE given in lab by Tanna Piedra in Right Groin via Subcutaneous. Ordered by Alina Piedra. Medication (Drip) Medication Time Given Dosage/Unit Concentration/Unit Diluent (ml) Solution ISUPREL 09/30/2016 6:14:42 PM 4 mcg/min 1 mg 250 NaCl .9 4 mcg/min ISUPREL given in lab by Anesthesia, JAWBONE PULLER via Peripheral IV. Pump/Drip Flow = 60 ml/hr using NaCl .9 with a concentration of 1 mg in 250 ml. Ordered by Tanna Piedra. Reason: As per physicians verbal order. IV Solutions 09/30/2016 5:26:17 PM 0 mL (IV) 500 NaCl .9 IV Solutions given in lab by Anesthesia, JAWBONE PULLER in Right Antecubital via Peripheral IV. Pump/Drip Flow = 20 ml/hr using NaCl .9. Ordered by Tanna Piedra. Reason: As per physicians verbal order. IV Solutions 09/30/2016 5:26:46 PM 0 mL (IV) 500 NaCl .9 IV Solutions given in lab by Anesthesia, JAWBONE PULLER in Left Antecubital via Peripheral IV. Pump/Drip Flow = 20 ml/hr using NaCl .9. Ordered by Tanna Piedra. Reason: As per physicians verbal order. Initial Case Assessment Cardiovascular HR Rhythm NIBP Chest Pain 64 se 150/78 0 Edema Present Skin color Skin None Normal Warm Dry Circulatory - Right Pulses Dorsalis Pedis Radial 2 2 Scale (0,1,2,3,4,d) Circulatory - Left Pulses Dorsalis Pedis Radial 2 2 Scale (0,1,2,3,4,d) Circulatory - Lower Extremities Color Lower Right Color Lower Left Normal Normal Neurological State Oriented to time-place- Alert Moves all extremities person Respiration - General Respiration Rate SpO2 (%) (B/min) 20 100 Final Case Assessment Cardiovascular HR Rhythm NIBP Chest Pain 91 st 92/58 0 Edema Present Skin color Skin None Normal Warm Dry Circulatory - Right Pulses Dorsalis Pedis 2 Scale (0,1,2,3,4,d) Circulatory - Left Pulses Dorsalis Pedis 2 Scale (0,1,2,3,4,d) Circulatory - Lower Extremities Color Lower Right Color Lower Left Normal Normal Neurological State Oriented to time-place- Lethargic Moves all extremities person Respiration - General Respiration Rate SpO2 (%) (B/min) 16 99 Chronological Log Time Study Chronological Log 17:23:43 Patient arrived via Bed. 17:24:50 Patient Name, D.O.B, / Armband Verified By R.N. 17:24:51 Consent signed by the physician and the patient and verified by the Iv Rn staff. 17:24:52 Pre-op and post- op instructions given; patient acknowledges understanding of instructions. 17:24:54 Verbal Stimulation=2 Physical Stimulation=2 Airway=2 Respiration=2 TOTAL=8. (0=absent, 1=li mited, 2=present) 17:25:04 Anesthesia at bedside. Assumes care of patient. 17:25:05 Presedation assessment performed by Iv Rn RN. 17:25:08 Patient has been NPO for More than 6Hrs. 17:25:10 Patient Warmer Placed on the Table. 17:25:11 Disposable Defibrillator Pads Placed On Patient. 17:25:17 Swetha Prominences Protected 17:25:20 Skin Breakdown/none per patient 17:26:01 A # 20 IV was noted in the Antecubital (left). Grade = 0 17:26:10 A # 20 IV was noted in the Antecubital (right). Grade = 0 IV Solutions given in lab by Anesthesia, JAWBONE PULLER in Right Antecubital via Peripheral IV. Pump/Drip Flow = 20 ml/hr using 17:26:17 NaCl .9. Ordered by Tanna Piedra. Reason: As per physicians verbal order. IV Solutions given in lab by Anesthesia, JAWBONE PULLER in Left Antecubital via Peripheral IV. Pump/Drip Flow = 20 ml/hr using 17:26:46 NaCl .9. Ordered by Tanna Piedra. Reason: As per physicians verbal order. 17:27:11 History and physical on the chart or being dictated. 17:35:15 Table restraints applied according to hospital policy 17:37:28 Right groin prepped with 2% chlorhexidine, and with a 3 min. waiting time. Assessment: Initial Case, HR=64 BPM, Rhythm=se, NAHJ=470/78 mmhg, Chest Pain=0, Edema=None, Col or=Normal, Skin = Warm, Dry Right Pulses: Chilo Ped=2, Radial=2 Left Pulses: Chilo Ped=2, Radial=2 17:41:09 Lower Right Extremities: Color=Normal Lower Left Extremities: Color=Normal Neurological: State=Alert, Ox3, SINGH Respiration: Resp=20 B/min, UlF7=434 % 17:42:49 MD paged 17:45:30 Reference ECG taken 17:52:42 MD arrived. Time Out. Correct patient, procedure, procedure equipment, site and side verified with physicia n present. Time 17:57:06 concurred by MD, individual staff and JAWBONE PULLER. Time Out #2 - Consents verified, patient in correct position, all results are labled and displa yed, safety precautions 17:57:33 taken, antibiotics administered. Time out concurred by MD, individual staff and JAWBONE PULLER in procedu re 17:57:51 Case Start 17:57:59 20 mL 1% XYLOCAINE given in lab by Tanna Piedra in Left Groin via Subcutaneous. Ordered by Tanna Piedra. 17:58:36 Vascular access was obtained in the Fem Vein (left). 17:58:39 Vascular access was obtained in the Fem Vein (left). 17:58:41 Vascular access was obtained in the Fem Vein (left). 17:59:23 A SHEATH, EPS, FR5 FAST CATH FR 5 was advanced into the Fem Vein (left) using the Modified Seldinger technique. 17:59:39 A SHEATH, EPS, FR5 FAST CATH FR 5 was advanced into the Fem Vein (left) using the Modified Seldinger technique. 17:59:47 A SHEATH, EPS, FR5 FAST CATH FR 5 was advanced into the Fem Vein (left) using the Modified Seldinger technique. 18:00:51 20 mL 1% XYLOCAINE given in lab by Tanna Piedra in Right Groin via Subcutaneous. Ordered b y Tanna Piedra. 18:01:02 Vascular access was obtained in the Fem Vein (right). 18:01:17 Vascular access was obtained in the Fem Vein (right). 18:01:27 A SHEATH, EPS, FR6 FAST CATH FR 6 was advanced into the Fem Vein (right) using the Modified Seldinger technique. 18:01:50 A SHEATH, EPS, FR8 FAST CATH FR 8 was advanced into the Fem Vein (right) using the Modified Seldinger technique. A CATHETER, JSN, QUAD FR 5 was advanced vis Fem Vein (left) and placed in the CS. Placement was visually 18:03:07 confirmed under fluoroscopy. A CATHETER, JSN, QUAD FR 5 was advanced vis Fem Vein (left) and placed in the HIS. Placement wa s visually 18:04:00 confirmed under fluoroscopy. A CATHETER, JSN, QUAD FR 5 was advanced vis Fem Vein (left) and placed in the RVA. Placement wa s visually 18:04:20 confirmed under fluoroscopy. A CATHETER, JSN, QUAD FR 5 was advanced vis Fem Vein (left) and placed in the HRA. Placement wa s visually 18:04:44 confirmed under fluoroscopy. 18:07:06 EPS in progress. 4 mcg/min ISUPREL given in lab by Anesthesia, JAWBONE PULLER via Peripheral IV. Pump/Drip Flow = 60 ml/hr using NaCl .9 with 18:14:42 a concentration of 1 mg in 250 ml. Ordered by Tanna Piedra. Reason: As per physicians verbal o rder. 18:26:03 DOCU called. Spoke to Yash 18:26:27 Bedside Report will be given. 18:26:35 EPS complete. Isuprel off. 18:26:45 EP Procedure was performed. EPS w isuprel 18:30:28 Sheath(s) left in place, sutured, 0.9ns kvo connected and will be removed in Holding Area Assessment: Final Case, HR=91 BPM, Rhythm=st, NIBP=92/58 mmhg, Chest Pain=0, Edema=None, Color =Normal, Skin = Warm, Dry Right Pulses: Chilo Ped=2 Left Pulses: Chilo Ped=2 18:31:07 Lower Right Extremities: Color=Normal Lower Left Extremities: Color=Normal Neurological: State=Lethargic, Ox3, SINGH Respiration: Resp=16 B/min, SpO2=99 % 18:32:15 Case End 18:32:40 Sterile dressing applied to sites 18:40:11 Patient moved to stretcher End Study - Contrast Media Used In Study Contrast Total Opened (mL) Total Used (mL) Total Wasted (mL) Unspecified 0 0 0 End Study - Maximum Contrast Load Max Contrast Load (mL) 567.9 End Study - Radiation Exposure Fluoro Time (minutes) 1.7 End Study - Patient Disposition Complications Transferred To Interventional Outcome No Telemetry Bed successful
[2016-09-30] MEDS ORDERED: SODIUM CHLOR 0.9% 250 ML INJ 250 ML IV PRN (19:00)
[2016-09-30] MEDS ORDERED: ONDANSETRON HCL 4 MG/2 ML VIAL IV PRN (19:00)
[2016-09-30] MEDS ORDERED: LIDOCAINE HCL 1% 50 ML VIAL INFIL PRN (19:00)
[2016-09-30] MEDS ORDERED: BACITRACIN OINT 0.9 GM PKT TOP ONE (19:00)
[2016-09-30] MEDS ORDERED: LORazepam 2 MG/ML VIAL IV PRN (19:00)
[2016-09-30] MEDS ORDERED: METOCLOPRAMIDE HCL 10 MG/2 ML VIAL IV PRN (19:00)
[2016-09-30] MEDS ORDERED: oxyCODONE/ACETAMINOPHEN 5 MG/325 MG TAB PO PRN ×2 (19:00)
[2016-09-30] MEDS ORDERED: ATROPINE SULFATE 1 MG/ML VIAL IV PRN (19:00)
[2016-10-01] VITALS (11 sets, daily range): BP systolic 109–116; BP diastolic 62–70; PULSE 59–88; RESP 16–18; TEMP 98.7–98.9; O2SAT 97–98
[2016-10-01] MEDS: HEPARIN SODIUM - SQ 10,000 UNITS/ML VIAL SQ SCH ×2 (04:04→09:30)
--- NOTE | 2016-10-01 04:54 | EKG ---
Date Performed: 09/30/2016 Time Performed: 22:37:22 PTAGE: 51 years EKG: Sinus rhythm Normal ECG PREVIOUS TRACING : 09/29/2016 22.16 Unchanged from prior EKG. DOCTOR: Paresh Hernandez Interpretating Date/Time 10/01/2016 04:52:33
[2016-10-01 06:11] LABS: PROTHROMBIN TIME - PATIENT 10.9 SEC (9.8-11.6)
--- NOTE | 2016-10-01 07:10 | MA ---
cc: ROSANNE UREÑA M.D. DATE 09/30/2016 PROCEDURE Electrophysiology study, CS cannulation, 3-D mapping for catheter placement and repeat electrophysiology study on Isuprel infusion. INDICATIONS FOR PROCEDURE Mr. Knight is a 51-year-old gentleman with no history of systemic illness, admitted due to supraventricular tachyarrhythmia, atrial flutter suspected. Electrophysiology study and ablation are scheduled. The risks, the nature and the benefit of the procedure are clearly stated to him. The risks include pneumothorax, cardiac perforation, stroke, need for open heart surgery and even . The patient understood and agreed to proceed. PROCEDURE After written informed consent was obtained, the patient was brought to the EP Lab where he was prepped and draped in the usual sterile fashion. Conscious sedation was initiated and maintained throughout the procedure by the anesthesiologist. Once sedation was verified, the right and left inguinal area was anesthetized with 2% Xylocaine. Using modified Seldinger technique, the left femoral vein was cannulated on three occasions and three guidewires were advanced over the wire. Three 5-Tajik Hemaquets were advanced, then the right femoral vein was cannulated on two occasions, two guidewire advanced over the wires. A 6 and an 8-Tajik Hemaquet were advanced. Then under fluoroscopic guidance through the 5 and 6-Tajik Hemaquet, four 5-Tajik Ran curved quadripolar electrophysiology catheters were advanced and placed on the His, upper right atrium, coronary sinus and right ventricular apex. Basic interval was measured. They were within normal limits. At this point atrial pacing protocol was performed. Atrial pacing protocol consisted of incremental atrial pacing as well as program stimulation with 110 cycle length and up to one extra stimuli delivered. No tachyarrhythmia was induced. Wenckebach was around 280 milliseconds at baseline. Next, ventricular pacing protocol was performed. There was VA conduction. No tachyarrhythmia was induced. Atrial pacing protocol was repeated again at the coronary sinus as well as upper right atrium. No tachyarrhythmia was induced. Then Isuprel infusion was initiated at 5 mcg. Atrial pacing protocol was repeated again. No tachyarrhythmia was induced. Isuprel was discontinued. Atrial and ventricular pacing protocol was repeated again. No tachyarrhythmia was induced. At that point the procedure was complete. All catheters were removed. The patient is going to be transferred to the recovery room. 3-D mapping was used for catheter placement. No incident reported. The patient tolerated the procedurem, blood loss minimal. 1. ELECTROCARDIOGRAM: At baseline the patient was in sinus. Postprocedure electrocardiogram was unchanged. 2. BASIC INTERVAL: Base cycle length was around 730 milliseconds, AH at 60 and HV around 45 milliseconds. 3. ATRIAL PACING PROTOCOL: Wenckebach of the node at baseline was 280. ERP of the node 600, 200 milliseconds. On Isuprel Wenckebach of the node at the upper right atrium as well as the coronary sinus was less than 250 milliseconds. 4. VENTRICULAR PACING PROTOCOL: There was VA conduction. It was concentric. No tachyarrhythmia was induced. CONCLUSION Negative electrophysiology study for supraventricular tachyarrhythmia. COMMENT AND RECOMMENDATION Mr. Knight most likely developed an episode of atrial tachycardia. It may be in the presence of acute stress. This is less likely atrial flutter. He may be in atrial fibrillation but no tachyarrhythmia was induced at this point. I recommend at this point not to proceed with atrial flutter ablation. Continue the patient with current medication and when stable discharge home. If in the future he has another like this episode, then a loop recorder will be inserted and possible atrial fibrillation ablation will be considered. I will discuss the case with the gentleman. No family at bedside. If the gentleman is stable, he can be discharged home in the morning. Rosanne Ureña MD HS/SSB /6:56 PM /7:04 AM
--- NOTE | 2016-10-01 07:48 | EKG ---
Date Performed: 10/01/2016 Time Performed: 06:10:12 PTAGE: 51 years EKG: Sinus rhythm Normal ECG NO SIGNIFICANT CHANGE FROM PRIOR ELECTROCARDIOGRAM. PREVIOUS TRACING : 09/30/2016 22.37 DOCTOR: Paresh Hernandez Interpretating Date/Time 10/01/2016 07:48:02
[2016-10-01] MEDS: DOCUSATE SODIUM 50 MG/SENNA 8.6 MG TAB PO SCH (09:00)
[2016-10-01] MEDS: SODIUM CHLORIDE 0.9% FLUSH 10 ML FLUSH IV FLUSH SCH (09:00)
[2016-10-01] MEDS ORDERED: METO25TA3 PO (09:06)
[2016-10-01] MEDS ORDERED: ASPI-110 PO (09:07)
--- NOTE | 2016-10-01 09:08 | HHI.DCPOC ---
Discharge Care Plan Diagnosis: (1) Elevated troponin I level (2) Sustained SVT (3) Atrial tachycardia Goals to Promote Your Health * To prevent worsening of your condition and complications * To maintain your health at the optimal level Directions to Meet Your Goals Take your medications as prescribed Follow your dietary instruction Follow activity as directed Keep your appointments as scheduled Take your immunizations and boosters as scheduled If your symptoms worsen call your PCP, if no PCP go to Urgent Care Center or Emergency Room Smoking is Dangerous to Your Health. Avoid second hand smoke Call the 24-hour hour crisis hotline for domestic abuse at Roberto Becerra MD Oct 01, 2016 09:07
[2016-10-01] MEDS: METOPROLOL TARTRATE 25 MG TAB PO SCH (09:46)
--- NOTE | 2016-10-01 09:58 | HHI.DS ---
Discharge Summary Admission Date Sep 28, 2016 at 17:01 Discharge Date: Oct 01, 2016 Admitting Diagnosis SVT, elevated troponin (1) Sustained SVT ICD Code: I47.1 Diagnosis: Principal (2) Elevated troponin I level ICD Code: R74.8 Diagnosis: Principal (3) Atrial tachycardia ICD Code: I47.1 Diagnosis: Principal Procedures sp EPS study Brief History - From Admission This is a 51-year-old [place] male with no significant past medical history who was brought into the ED by EMS for tachycardia. History is obtained from the patient himself as well as review of the medical record. Patient states that he had been working on a truck out in the heat earlier today. He had not eaten or drank anything all day. About an hour prior to his arrival into the ED, he developed some dizziness, sweating and palpitations. He felt as if his heart was racing. He denies any associated chest pain. When EMS arrived patient was in SVT. EMS administered several rounds of adenosine and each time patient would temporally convert to NSR for a few seconds before going back in to SVT. Upon arrival to the ED patient heart rate of near 250. Patient was cardioverted in the ED and the rhythm and really returned to normal sinus with tachycardia. He was given IV fluid and started on metoprolol 50 mg. Of note, patient is requesting to be discharged by Friday as he has a flight to [place] to see his son's graduation from high school. CBC/BMP: 09/29/16 0301 09/29/16 0301 Significant Findings Laboratory Tests Test 09/28/16 09/28/16 09/29/16 15:25 22:05 03:01 White Blood Count 14.6 TH/MM3 11.7 TH/MM3 (4.0-11.0) (4.0-11.0) Neutrophils (%) (Auto) 79.7 % (16.0-70.0) Neutrophils # (Auto) 11.7 TH/MM3 (1.8-7.7) Chloride Level 111 MEQ/L 109 MEQ/L (98-107) (98-107) Carbon Dioxide Level 20.6 MEQ/L (21.0-32.0) Blood Urea Nitrogen 20 MG/DL (7-18) Estimat Glomerular Filtration 86 ML/MIN (>89) Rate Random Glucose 143 MG/DL (74-106) Creatine Kinase MB 4.3 NG/ML (0.5-3.6) Troponin I 0.09 NG/ML 0.70 NG/ML 0.46 NG/ML (0.02-0.05) (0.02-0.05) (0.02-0.05) Urine Cannabinoids Screen POS (NEG) Calcium Level 7.8 MG/DL (8.5-10.1) Imaging Last Impressions Chest X-Ray 09/28/16 1519 Signed Impressions: Service Date/Time: Wednesday, September 28, 2016 15:36 - CONCLUSION: No evidence of acute cardiopulmonary disease. Moise Barry MD PE at Discharge GENERAL: This is a well-nourished, well-developed patient, in no apparent distress. Awake and alert. Pleasant and cooperative. SKIN: No rashes, ecchymoses or lesions. Cool and dry. HEAD: Atraumatic. Normocephalic. No temporal or scalp tenderness. EYES: Pupils equal round and reactive. Extraocular motions intact. No scleral icterus. No injection or drainage. ENT: Nose without bleeding, purulent drainage or septal hematoma. Throat without erythema, tonsillar hypertrophy or exudate. Uvula midline. Airway patent. NECK: Trachea midline. Supple, nontender, no meningeal signs. CARDIOVASCULAR: Regular rate and rhythm without murmurs, gallops, or rubs. RESPIRATORY: Clear to auscultation. Breath sounds equal bilaterally. No wheezes , rales, or rhonchi. GASTROINTESTINAL: Abdomen soft, non-tender, nondistended. No hepato-splenomegaly , or palpable masses. No guarding. MUSCULOSKELETAL: Extremities without clubbing, cyanosis, or edema. No joint tenderness, effusion, or edema noted. No calf tenderness. NEUROLOGICAL: Awake and alert. Able to move all extremities. No focal neurologic findings appreciated. Normal speech. Pt update on day of discharge Patient denies palpitation, cp, sob. Cleared to be discharged home by Dr Piedra. Hospital Course 51-year-old [place] male with no significant past medical history who was brought into the ED by EMS in SVT with a heart rate of 250. Despite being given the appropriate amount of adenosine, patient failed to stay in normal sinus rhythm. ED physician made the decision to cardiovert the patient and he was successful cardioverted to normal sinus rhythm with tachycardia. SVT Elevated troponin/SVT Patient currently in normal sinus rhythm Elevated troponin likely due to SVT Urine drug screen positive for marijuana but no evidence of cocaine use Cardiology consulted Monitored on cardiac telemetry Cycle cardiac enzymes and EKGs - cardiac enzymes peaked at 0.7 Echo showed a normal EF of 55 to 60% and no regional wall motion abnormalities Patient had a negative EPS study for SVT - Cleared to be discharged by cardiology. Leukocytosis Reactive to stress p WBC monitored, trended down Patient was afebrile and normotensive. No suspicion of infection at this time. DVT prophylaxis Heparin subcutaneous Pt Condition on Discharge: Stable Discharge Disposition: Discharge Home Discharge Time: <= 30 minutes Discharge Instructions DIET: Follow Instructions for: As Tolerated, No Restrictions Activities you can perform: Regular-No Restrictions Follow up Referrals: Cardiology - 2 Weeks New Medications: Aspirin DR (Aspirin 81) 81 Mg Tabdr 81 MG PO DAILY Blood Clot Prevention #62 Ref 0 TAB Metoprolol Tartrate (Metoprolol Tartrate) 25 Mg Tab 25 MG PO Q12HR dysrrythmia #62 TAB Roberto Becerra MD Oct 01, 2016 09:58
--- NOTE | 2016-10-01 14:13 | HHI.PR ---
Subjective Remarks Feeling good. Can I travel today?? Objective Vital Signs Date Time Temp Pulse Resp B/P Pulse Ox O2 Delivery O2 Flow Rate FiO2 10/01/16 10:00 88 10/01/16 09:00 70 10/01/16 08:00 64 10/01/16 07:00 98.7 71 18 116/70 97 10/01/16 07:00 60 10/01/16 07:00 97 Room Air 10/01/16 06:18 63 10/01/16 05:25 65 10/01/16 04:58 59 10/01/16 03:25 62 10/01/16 03:25 98.9 65 16 109/62 98 10/01/16 02:00 75 10/01/16 01:00 65 10/01/16 00:00 62 09/30/16 23:19 99.1 71 16 116/74 98 09/30/16 23:00 61 09/30/16 22:00 80 09/30/16 21:00 66 09/30/16 20:15 96 Room Air 09/30/16 20:15 76 09/30/16 16:00 98.7 60 20 131/77 99 I/O 09/30/16 09/30/16 09/30/16 10/01/16 10/01/16 10/01/16 07:00 15:00 23:00 07:00 15:00 23:00 Intake Total 0 ml 1460 ml Output Total 250 ml Balance 0 ml 1210 ml Intake Oral 0 ml 960 ml IV Total 500 ml Output Urine Total 250 ml # Voids 2 # Bowel Movements 0 Result Diagram: 09/29/16 0301 09/29/16 0301 Imaging Alert, oriented, in bed Lungs: ventilated Heart: S1, S2 regular, no gallop Abdomen: soft, no mass Ext: no edema Last Impressions Chest X-Ray 09/28/16 1519 Signed Impressions: Service Date/Time: Wednesday, September 28, 2016 15:36 - CONCLUSION: No evidence of acute cardiopulmonary disease. Moise Barry MD Assessment and Plan Problem List: (1) Sustained SVT Status: Acute Plan: SP EP study. No tachy induced Possible atrial arrhythmia Can be DH If there is an other episode then loop recorder will be considered Ok to travel to [place] today Case extensively discussed with patient Tanna Piedra MD Oct 01, 2016 14:13
== END 2016-10-01 11:10 | disposition home or self-care (01) | DRG 310 ==
LOC: NEPE 15:07 → NEDA 17:01 → N04A 18:45 → HCIS 09-30 14:31
PROVIDERS: ADMIT Hospitalist; ATTEND Hospitalist
PROC: 5A2204Z Restoration of Cardiac Rhythm, Single (ICD-10-PCS; 2016-09-28)
PROC: 4A0234Z Measurement of Cardiac Electrical Activity, Percutaneous Approach (ICD-10-PCS; principal; 2016-09-30 16:00)
DX: I48.92 Unspecified atrial flutter (principal); F12.90 Cannabis use, unspecified, uncomplicated; I47.1 Supraventricular tachycardia; Z87.891 Personal history of nicotine dependence
CPT/HCPCS: 71010; 80048; 80053; 80061; 80307; 82550; 82552; 83036; 83735; 84439; 84443; 84481; 84484; 85025; 85610; 85730; 92960; 93005; 93306; 93623; 99152; 99153; C1730; C1732; J1644; J2250; J3010; J7030